=== PATIENT | female | born 1955 | race Caucasian/White ===

== ENCOUNTER → 2016-07-03 | Outpatient (CLI) | payer OTHER ==
[~2016-07-03] MED LIST: BENICAR HCT 201 EACH PO; CARAFATE1 GM PO; CLARITIN,ALAVAR10 MG PO; CLONAZEPAM2 MG PO; FIORICET 50-301 EACH PO; HYDROCODON-ACE1 EAC7 PO; HYOSCYAMINE0.125 M2 PO; IBUPROFEN600 MG PO; LAMICTAL200 MG PO; LORTAB 5-325 M1 EACH PO; METFORMIN HCL500 MG PO; PROBIOTIC1 EAC1 PO; TRAMADOL HCL50 MG PO
== END | disposition home or self-care (01) ==
LOC: MRI 12:46 → RAD 13:30 → MRI 13:30
DX: M50.30 Other cervical disc degeneration, unspecified cervical region (principal); M48.02 Spinal stenosis, cervical region
CPT/HCPCS: 72156

== ENCOUNTER 2016-10-23 08:13 | Day surgery (SDC) | payer OTHER ==
[~2016-10-23] VITALS: Ht 175.3 cm; Wt 100.7 kg
[~2016-10-23 08:13] MED LIST changes: +DEXEDRINE PO; +DUONEB 2.5-0.5 M3 ML AEROSOL; +FEMARA2.5 MG PO; +KLONOPIN2 MG PO; +LOSARTAN-HCTZ1 EACH PO; +METFORMIN HCL1000 M3 PO; +VICODIN 5-3001 EACH PO; +ZANAFLEX2 MG PO
[2016-10-23 09:28] LABS: POINT-OF-CARE METER ID UU14174212
== END 2016-10-23 11:15 | disposition home or self-care (01) ==
LOC: PAIN 08:13 → SDC 09:00 → PAIN 11:15
PROVIDERS: Anesthesiology Pain Medicine
DX: M47.816 Spondylosis without myelopathy or radiculopathy, lumbar region (principal); M54.5 Low back pain; G89.29 Other chronic pain; M51.36 Other intervertebral disc degeneration, lumbar region; M79.1 Myalgia; M75.51 Bursitis of right shoulder; I10 Essential (primary) hypertension; J45.909 Unspecified asthma, uncomplicated; E11.9 Type 2 diabetes mellitus without complications; E66.3 Overweight; Z68.32 Body mass index [BMI] 32.0-32.9, adult; Z79.891 Long term (current) use of opiate analgesic; Z85.3 Personal history of malignant neoplasm of breast; Z87.891 Personal history of nicotine dependence; Z79.84 Long term (current) use of oral hypoglycemic drugs
CPT/HCPCS: 82948; J1030; J2250; J3010; S0020

== ENCOUNTER 2016-10-30 08:21 | Day surgery (SDC) | payer OTHER ==
[~2016-10-30] VITALS: Ht 175.3 cm; Wt 100.7 kg
[2016-10-30] MEDS ORDERED: COMPAZINE5 MG PO (08:47)
[2016-10-30 08:53] LABS: POINT-OF-CARE METER ID UU14174212
== END 2016-10-30 11:10 | disposition home or self-care (01) ==
LOC: PAIN 08:21 → SDC 09:00 → PAIN 09:00
PROVIDERS: Anesthesiology Pain Medicine
DX: M47.26 Other spondylosis with radiculopathy, lumbar region (principal); M51.16 Intervertebral disc disorders with radiculopathy, lumbar region; M70.61 Trochanteric bursitis, right hip; I10 Essential (primary) hypertension; E11.9 Type 2 diabetes mellitus without complications; M79.1 Myalgia; J45.909 Unspecified asthma, uncomplicated; Z79.84 Long term (current) use of oral hypoglycemic drugs; Z85.3 Personal history of malignant neoplasm of breast; Z87.891 Personal history of nicotine dependence; Z79.891 Long term (current) use of opiate analgesic; Z96.653 Presence of artificial knee joint, bilateral; Z88.0 Allergy status to penicillin
CPT/HCPCS: 82948; J1030; J2250; J3010; S0020

== ENCOUNTER 2017-01-23 13:04 | Day surgery (SDC) | payer OTHER ==
[~2017-01-23] VITALS: Ht 175.3 cm; Wt 101.2 kg
[~2017-01-23 13:04] MED LIST changes: +COMPAZINE5 MG PO; +ZITHROMAX Z-PA250 MG PO
[2017-01-23 13:43] LABS: POINT-OF-CARE METER ID UU14174212
== END 2017-01-23 14:30 | disposition home or self-care (01) ==
LOC: PAIN 13:04
PROVIDERS: Anesthesiology Pain Medicine
DX: M47.26 Other spondylosis with radiculopathy, lumbar region (principal); M51.16 Intervertebral disc disorders with radiculopathy, lumbar region; G89.29 Other chronic pain; M48.061 Spinal stenosis, lumbar region without neurogenic claudication; M79.1 Myalgia; I10 Essential (primary) hypertension; E11.9 Type 2 diabetes mellitus without complications; F41.9 Anxiety disorder, unspecified; J45.909 Unspecified asthma, uncomplicated; Z88.0 Allergy status to penicillin; Z87.891 Personal history of nicotine dependence; Z79.84 Long term (current) use of oral hypoglycemic drugs; Z79.891 Long term (current) use of opiate analgesic
CPT/HCPCS: 82948; J1030; J2250; J3010; S0020

== ENCOUNTER 2017-02-20 12:31 | Day surgery (SDC) | payer OTHER ==
[~2017-02-20] VITALS: Ht 175.3 cm; Wt 101.2 kg
[~2017-02-20 12:31] MED LIST changes: +MOTRIN800 MG PO
== END 2017-02-20 15:20 | disposition home or self-care (01) ==
LOC: PAIN 12:31 → SDC 13:00 → PAIN 13:00
PROVIDERS: Anesthesiology Pain Medicine
DX: M47.26 Other spondylosis with radiculopathy, lumbar region (principal); Z85.3 Personal history of malignant neoplasm of breast; Z92.3 Personal history of irradiation; J45.909 Unspecified asthma, uncomplicated; Z87.891 Personal history of nicotine dependence; Z96.659 Presence of unspecified artificial knee joint; Z88.1 Allergy status to other antibiotic agents
CPT/HCPCS: 82948; J1030; J2250; J3010; S0020

== ENCOUNTER 2017-05-09 11:03 | Emergency (ER) | payer OTHER ==
[~2017-05-09] VITALS: Ht 175.3 cm; Wt 98.3 kg
[2017-05-09 11:58] LABS: BASOPHIL (%) 0.8 % (0-1); EOSINOPHIL (%) 4.8 % (0-5); EOSINOPHIL COUNT 0.2 K/uL (0-0.3); HEMOGLOBIN 12.3 G/DL (11.9-15.5); IMMATURE GRANULOCYTE (%) 0.6 % (0.0-0.7); LYMPHOCYTE (%) 22.6 % (15-42); LYMPHOCYTE COUNT 1.1 K/uL (1.0-2.8); MCH 28.7 PG (29.0-34.0); MCHC 34.2 G/DL (30.0-36.0); MCV 84.1 FL (83-99); MONOCYTE (%) 7.3 % (3-12); MONOCYTE COUNT 0.4 K/uL (0-0.8); NEUTROPHIL (%) 63.9 % (45-76); NEUTROPHIL COUNT 3.1 K/uL (1.8-6.4); PLATELET COUNT 221 K/uL (156-360); RBC DIS.WIDTH-CV 12.8 % (11.8-14.6); RBC DIS.WIDTH-SD 38.5 % (39-53); RED BLOOD COUNT 4.28 M/uL (3.80-5.20); WHITE BLOOD COUNT 4.8 K/uL (4.1-10.2)
[2017-05-09 12:06] LABS: CHLORIDE 104 mEq/L (99-109); POTASSIUM 3.3 mEq/L (3.7-5.4); SODIUM 139 mEq/L (136-147)
[2017-05-09 12:07] LABS: GLUCOSE 130 mg/dL (70-99)
[2017-05-09 12:11] LABS: CREATININE 0.8 mg/dL (0.6-1.3); GFR ESTIMATE (CALCULATED) > 59 mL/min/
[2017-05-09 12:12] LABS: UREA NITROGEN (BUN) 15 mg/dL (9-23)
[2017-05-09 12:49] VITALS: BP 152/95
== END 2017-05-09 12:53 | disposition home or self-care (01) ==
LOC: EME 11:03
PROVIDERS: Emergency Medicine
DX: I10 Essential (primary) hypertension (principal); F41.9 Anxiety disorder, unspecified; E78.5 Hyperlipidemia, unspecified; Z85.3 Personal history of malignant neoplasm of breast; Z86.718 Personal history of other venous thrombosis and embolism; Z90.10 Acquired absence of unspecified breast and nipple; Z79.84 Long term (current) use of oral hypoglycemic drugs; Z88.0 Allergy status to penicillin; Z88.6 Allergy status to analgesic agent
CPT/HCPCS: 80048; 85025; 99281; 99284